=== PATIENT | female | born 1960 | race Caucasian/White ===

== ENCOUNTER 2023-04-18 11:20 | Emergency (ER) | payer OTHER, SELFPAY ==
[2023-04-18 11:31] VITALS: BP 159/108; PULSE 95; RESP 16; TEMP 36.4; O2SAT 97; BMI 70.4
--- NOTE | 2023-04-18 11:34 | ED.GENADUL1 ---
HPI - General Adult General Chief complaint: Extremity Injury, Lower Stated complaint: LOWER EXTREMITY LEFT BIG TOE Time Seen by Provider: 04/18/23 11:34 History of Present Illness HPI narrative: Patient developed a large bulla to the dorsum of her great toe 1 week ago. She said a burst and then started to look like it had pus. Her toe and foot started getting swollen and red so she called her doctor and was started on doxycycline. Patient denies any trauma. She has been taking the doxycycline and the area remains the same. She states now there is some adjacent little bulla on the she is noticing. She has not had any pedicure done. She is not a diabetic. She states she is borderline. She denies any fever, chills. She states she has had cellulitis to the leg in the past but never to the foot like this.. Related Data Home Medications Medication Instructions Recorded Confirmed apixaban 2.5 mg tablet (Eliquis) 2.5 mg PO BID 04/18/23 04/18/23 aspirin 81 mg tablet,delayed 81 mg PO DAILY 04/18/23 04/18/23 release (Adult Low Dose Aspirin) doxycycline hyclate 100 mg capsule 100 mg PO Q12H 04/18/23 04/18/23 furosemide 40 mg tablet 40 mg PO DAILY 04/18/23 04/18/23 metoprolol succinate 50 mg 50 mg PO DAILY 04/18/23 04/18/23 tablet,extended release 24 hr Previous Rx's Medication Instructions Recorded cephalexin 500 mg capsule 500 mg PO TID 7 days #21 caps 04/18/23 sulfamethoxazole 800 1 tab PO BID 7 days #14 tabs 04/18/23 mg-trimethoprim 160 mg tablet (Bactrim DS) Allergies Allergy/AdvReac Type Severity Reaction Status Date / Time No Known Drug Allergies Allergy Verified 04/18/23 11:30 Review of Systems ROS Status of ROS 10 or more systems reviewed and unremarkable except as noted in history and below Exam Narrative Exam Narrative: Nurses notes and vital signs reviewed and patient is not hypoxic. General: Nontoxic, Well-appearing and in no apparent distress. Skin: Warm, dry, no pallor noted. No Rash Head: Normocephalic, atraumatic. Neck: Supple, non-tender. Eye: Pupils are equal, round and EOMI. No scleral icterus. Ears, Nose, Mouth, and Throat: TM clear, no posterior oropharynx erythema or nasal mucosal hypertrophy, uvula is mid-line Oral mucosa is moist Cardiovascular: Regular Rate and Rhythm without murmur, gallop or rub. Respiratory: No accessory muscle use or respiratory distress. Lungs are clear to auscultation, no wheezing, rales or rhonchi Chest Wall: no tenderness Back: No midline thoracic or lumbar vertebral tenderness. No CVA tenderness Musculoskeletal: Left great toe with a white plaque over size to the dorsum consistent with paronychia. There is no fluctuance. There is surrounding localized erythema to the midfoot without any further proximal streaking. There are 2 small bulla to the lateral aspect of the great toe. No bony tenderness, full normal ROM, no calf or popliteal tenderness, no lower extremity edema/swelling GI: obese, Abdomen is soft, non-distended. Normal bowel sounds. No masses appreciated. No tenderness to palpation. No rebound, guarding, or rigidity noted. Neurological: A&O x4. No cranial nerve dysfunction observed. No truncal ataxia. Moves all extremities. Sensation intact. Psychiatric: Cooperative and interactive. Normal mood and affect. Constitutional Vital Signs - 24 hr 04/18/23 11:31 Temperature 97.5 F L Pulse Rate [Monitor] 95 H Respiratory Rate 16 Blood Pressure [Left Arm] 159/108 H Pulse Oximetry 97 Oxygen Delivery Method Room Air Course Vital Signs Vital signs: Vital Signs Temperature 97.5 F L 04/18/23 11:31 Pulse Rate 95 H 04/18/23 11:31 Respiratory Rate 16 04/18/23 11:31 Blood Pressure 159/108 H 04/18/23 11:31 Pulse Oximetry 97 04/18/23 11:31 Oxygen Delivery Method Room Air 04/18/23 11:31 Temperature 97.5 F L 04/18/23 11:31 Pulse Rate 95 H 04/18/23 11:31 Respiratory Rate 16 04/18/23 11:31 Blood Pressure 159/108 H 04/18/23 11:31 Pulse Oximetry 97 04/18/23 11:31 Oxygen Delivery Method Room Air 04/18/23 11:31 Medical Decision Making MDM Narrative Medical decision making narrative: Vision had an IV established. While labs were pending the patient had 1.5 g of vancomycin given. X-rays and lab results were order an ultrasound results are discussed with patient. Patient does not appear septic. Incision and drainage: A single layer of iodine was used to prep the area. Drapes were placed to ensure isolation of the abscess and surrounding skin tissue. A regional field block was performed with 1% lidocaine. Incision was made with an 11 blade to the full dimension of the abscess, no purulent material was expressed. Cultures were obtained and sent to the lab. The abscess was explored, the use of hemostats were used to break up the septum and loculations within the abscess. The cavity was irrigated with three 60 cc syringe of normal saline. A dry sterile dressing was placed. Patient tolerated the procedure well and will be discharged with Keflex, and Bactrim. pt is to follow-up with Dr. Blair, Patient is to follow-up in the next 2-3 days with PCP or ED to have area evaluated. Lab Data Lab results reviewed: Yes I reviewed the patient's lab results Labs: Lab Results 04/18/23 Range/Units 12:06 WBC 4.1 (4.0-11.0) 10^3/uL RBC 4.86 (4.20-5.40) 10^6/uL Hgb 15.3 (12.0-16.0) g/dL Hct 46.5 (36.0-48.0) % MCV 95.7 (81.0-99.0) fL MCH 31.5 (26.7-34.0) pg MCHC 32.9 (29.9-35.2) g/dL RDW 13.0 (11.0-15.0) % Plt Count 157 (150-450) 10^3/uL MPV 9.6 (9.5-13.5) fL Neut % (Auto) 57.4 (43.0-75.0) % Lymph % (Auto) 27.8 (20.5-60.0) % Morgan % (Auto) 6.8 (1.7-12.0) % Eos % (Auto) 6.8 (0.9-7.0) % Baso % (Auto) 1.0 (0.2-2.0) % Neut # (Auto) 2.4 (1.4-6.5) 10^3/uL Lymph # (Auto) 1.2 (1.2-3.8) 10^3/uL Morgan # (Auto) 0.3 (0.3-0.8) 10^3/uL Eos # (Auto) 0.3 (0.0-0.7) 10^3/uL Baso # (Auto) 0.0 (0.0-0.1) 10^3/uL Abs Immat Gran (auto) 0.01 (0.00-0.03) 10^3/uL Imm/Tot Granulo (auto) 0.2 (0.0-0.5) % Sodium 139 (136-145) mmol/L Potassium 4.1 (3.5-5.1) mmol/L Chloride 102 (98-107) mmol/L Carbon Dioxide 29.1 (21.0-32.0) mmol/L Anion Gap 12.0 BUN 15.0 (7.0-18.0) mg/dL Creatinine 0.78 (0.55-1.02) mg/dL Est GFR ( Amer) >60 (>=60) Est GFR (Non-Af Amer) >60 (>=60) BUN/Creatinine Ratio 19.2 Glucose 110 H (74-106) mg/dL Calcium 10.2 H (8.5-10.1) mg/dL Discharge Plan Discharge Chief Complaint: Extremity Injury, Lower Clinical Impression: Paronychia, Cellulitis and abscess of foot Patient Disposition: Home, Self-Care Time of Disposition Decision: 13:25 Condition: Good Mode of Transportation: Private Vehicle Prescriptions / Home Meds: New cephalexin 500 mg capsule 500 mg PO TID 7 Days Qty: 21 0RF sulfamethoxazole-trimethoprim [Bactrim DS] 800-160 mg tablet 1 tab PO BID 7 Days Qty: 14 0RF No Action doxycycline hyclate 100 mg capsule 100 mg PO Q12H furosemide 40 mg tablet 40 mg PO DAILY Eliquis 2.5 mg tablet 2.5 mg PO BID metoprolol succinate 50 mg tablet extended release 24 hr 50 mg PO DAILY aspirin [Adult Low Dose Aspirin] 81 mg tablet,delayed release (DR/EC) 81 mg PO DAILY Instructions: Paronychia (ED), Cellulitis (ED) Stand Alone Forms: Portal Instructions Referrals: SHELDON VILLELA [Primary Care Provider] - 1 week Obey Blair MD [Physician] - As soon as possible
--- NOTE | 2023-04-18 11:40 | PC.NURSE ---
pt states she had cellulitis in november pt states she thinks it is back. pt states left foot blisters with drainage. pt denies pain states her foot just itches and allen.
--- NOTE | 2023-04-18 11:41 | XR_ITS ---
[address] [address] Patient Name: VANESA SUMNER MRN: [id number] date: 1960 Sex: F Assigned Patient Location: ER Current Patient Location: ED.MAIN Accession/Order Number: [id number] Exam Date: 04/18/2023 12:15 Report Date: 04/18/2023 13:09 At the request of: MYLES ENRIQUE Procedure: XR foot LT min 3V EXAM: XR foot LT min 3V HISTORY: pain COMPARISON: None. TECHNIQUE: 3 views of the left foot FINDINGS: There is no acute fracture or dislocation. Arthritic changes of the forefoot and midfoot are noted. There is hallux valgus. No cortical erosion or focal osteopenia. There is diffuse soft tissue swelling of the foot. IMPRESSION: No acute process. Electronically authenticated by: KERWIN JOSEPH Date: 04/18/2023 13:09
[2023-04-18 12:17] LABS: Eosinophils Absolute Auto 0.3 10^3/uL (0.0-0.7); Eosinophils Percent Auto 6.8 % (0.9-7.0); Hematocrit 46.5 % (36.0-48.0); Hemoglobin 15.3 g/dL (12.0-16.0); Immature Granulocytes Abs Auto 0.01 10^3/uL (0.00-0.03); Immature Granulocytes Pct Auto 0.2 % (0.0-0.5); Lymphocytes Absolute Auto 1.2 10^3/uL (1.2-3.8); Lymphocytes Percent Auto 27.8 % (20.5-60.0); Mean Corpuscular HGB Conc 32.9 g/dL (29.9-35.2); Mean Corpuscular Hemoglobin 31.5 pg (26.7-34.0); Mean Corpuscular Volume 95.7 fL (81.0-99.0); Mean Platelet Volume 9.6 fL (9.5-13.5); Monocytes Absolute Auto 0.3 10^3/uL (0.3-0.8); Monocytes Percent Auto 6.8 % (1.7-12.0); Neutrophils Absolute Auto 2.4 10^3/uL (1.4-6.5); Neutrophils Percent Auto 57.4 % (43.0-75.0); Platelet Count 157 10^3/uL (150-450); Red Blood Count 4.86 10^6/uL (4.20-5.40); White Blood Count 4.1 10^3/uL (4.0-11.0)
[2023-04-18] MEDS: VANCOMYCIN HCL 1,500 MG in 0.9 % SODIUM CHLORIDE 500 ML 250 MG IV (12:38)
[2023-04-18 12:39] LABS: BUN Creatinine Ratio 19.2; Calcium 10.2 mg/dL (8.5-10.1); Carbon Dioxide 29.1 mmol/L (21.0-32.0); Chloride 102 mmol/L (98-107); Estimated GFR (African America >60 (>=60); Estimated GFR (Non-African Ame >60 (>=60); Glucose 110 mg/dL (74-106); Potassium 4.1 mmol/L (3.5-5.1); Sodium 139 mmol/L (136-145)
== END 2023-04-18 14:56 | disposition home or self-care (01) ==
PROVIDERS: Emergency Provider Emergency Medicine; PCP Family Medicine
DX: L03.032 Cellulitis of left toe (principal); L02.612 Cutaneous abscess of left foot
CPT/HCPCS: 10060; 36415; 73630; 80048; 85025; 87040; 87070; 87150; 87186; 96374; 99285; J3370